=== PATIENT | male | born 1940 | race Caucasian/White ===

== ENCOUNTER 2021-04-07 19:37 | Inpatient (IN) | payer MEDICARE, MEDICAID ==
[~2021-04-07] VITALS: Ht 167.6 cm; Wt 60.3 kg
[~2021-04-07 19:37] MED LIST: ALBU8HFA IH; ATOR40TA28 PO; CLOP75TA60 PO; GABA-1216 PO; GLIP5 PO; LEVO50TA28 PO; LISI-892 PO; MECL-186 PO; METF-960 PO; TAMS-13 PO
[2021-04-07 20:55] LABS: BASOPHILS % (AUTO) 0.1 % (0.0-2.0); EOSINOPHILS % (AUTO) 0.1 % (1.0-6.0); HEMATOCRIT 38.9 % (41-53); HEMOGLOBIN 13.2 g/dL (13.5-17.5); LYMPHOCYTES # (AUTO) 0.7 K/uL (1.0-4.8); LYMPHOCYTES % (AUTO) 16.2 % (22.0-44.0); MEAN CORPUSCULAR HEMOGLOBIN 30.8 pg (26.0-34.0); MEAN CORPUSCULAR HGB CONC 34.1 G/dL (31.0-37.0); MEAN CORPUSCULAR VOLUME 91 fL (80-100); MONOCYTES # (AUTO) 0.6 K/uL (0.1-1.0); MONOCYTES % (AUTO) 12.8 % (2.0-9.0); NEUTROPHILS # (AUTO) 3.2 K/uL (1.8-7.7); NEUTROPHILS % (AUTO) 70.8 % (40.0-70.0); PLATELET COUNT (AUTO) 237 K/uL (150-450); RED BLOOD CELL COUNT(AUTO) 4.29 MIL/uL (4.50-5.90); RED CELL DISTRIBUTION WIDTH 13.3 % (11.5-14.5)
[2021-04-07 21:05] LABS: ANION GAP 9 mmol/L (8-16); CALCIUM, TOTAL 8.9 mg/dL (8.8-10.5); CARBON DIOXIDE 28 mmol/L (22-29); CHLORIDE 99 mmol/L (98-107); CREATININE 0.85 mg/dL (0.60-1.30); GLUCOSE,RANDOM 147 mg/dL (70-110); POTASSIUM 3.2 mmol/L (3.5-5.1); SODIUM SERUM 136 mmol/L (136-145); UREA NITROGEN, BLOOD 13 mg/dL (7-18)
[2021-04-07 21:06] LABS: GLOMERULAR FILTR. RATE CALC > 60 mL/min (>60)
[2021-04-07 21:12] LABS: LACTIC ACID 0.8 mmol/L (0.4-2.0)
[2021-04-07] MEDS: ACETAMINOPHEN 325 MG TABLET PO ONE ×2 (21:15→22:20)
[2021-04-07] MEDS: SODIUM CHLORIDE 0.9% 1,000 ML IV ONE ×2 (21:15→22:19)
[2021-04-07 21:19] LABS: ALANINE AMINOTRANSFERASE 27 U/L (12-78); ALBUMIN 3.3 g/dL (3.4-5.0); ALKALINE PHOSPHATASE 137 U/L (46-116); ASPARTATE AMINOTRANSFERASE 24 U/L (15-37); BILIRUBIN,TOTAL 1.5 mg/dL (0.1-1.0); TOTAL PROTEIN, SERUM 7.9 g/dL (6.4-8.2)
[2021-04-07 21:25] LABS: B-TYPE NATRIURETIC PEPTIDE 80 pg/mL (0-100)
[2021-04-07 21:25] LABS: COVID AG,FIA SOURCE NASOPHARYNGEAL
[2021-04-07] MEDS ORDERED: SODIUM CHLORIDE 0.9% 2,250 ML IV ONE (21:45)
[2021-04-07] MEDS ORDERED: 0.9% SODIUM CHLORIDE 10 ML SYRINGE IVP PRN (21:45)
[2021-04-07] MEDS ORDERED: AZITHROMYCIN 500 MG/NS 250 ML IV ONE (21:45)
[2021-04-07] MEDS ORDERED: ACETAMINOPHEN 325 MG TABLET PO PRN (21:45)
[2021-04-07] MEDS ORDERED: ONDANSETRON HCL 4 MG/2 ML VIAL IVP PRN (21:45)
[2021-04-07] MEDS: CefTRIAXone 1 GM/DEXTROSE 50 ML IV ONE ×2 (21:45→22:22)
[2021-04-07 21:56] LABS: INFLUENZA TYPE A NEGATIVE FOR TYPE A (NEGATIVE); INFLUENZA TYPE B NEGATIVE FOR TYPE B (NEGATIVE)
[2021-04-07 21:58] LABS: FREE T4 (FREE THYROXINE) 0.98 ng/dL (0.76-1.46)
[2021-04-08] MEDS ORDERED: SODIUM CHLORIDE 0.9% 1,000 ML IV ONE (08:15)
[2021-04-08] MEDS ORDERED: AZITHROMYCIN 500 MG/NS 250 ML IV ONE (08:15)
[2021-04-08] MEDS ORDERED: CefTRIAXone 1 GM/DEXTROSE 50 ML IV ONE (08:15)
[2021-04-08 21:41] LABS: GLUCOMETER DEV NAME(LOC) ERT.5; GLUCOSE,POINT OF CARE 171 MG/DL (70-110)
[2021-04-09] MEDS ORDERED: HEPARIN SODIUM 25000 UNITS/D5W 250 ML IV PRN (02:15)
[2021-04-09] MEDS ORDERED: ACETAMINOPHEN 325 MG TABLET PO PRN (02:15)
[2021-04-09] MEDS ORDERED: ONDANSETRON HCL 4 MG/2 ML VIAL IVP PRN ×2 (02:15→11:30)
[2021-04-09] MEDS ORDERED: HEPARIN SODIUM,PORCINE 5,000 UNITS/ML VIAL IVP PRN ×2 (02:15)
[2021-04-09 02:29] LABS: INR 1.1 (0.9-1.1); PROTHROMBIN TIME 11.9 SEC (9.4-11.6)
[2021-04-09] MEDS ORDERED: INSULIN LISPRO 100 UNITS/ML SQ PRN (02:30)
[2021-04-09] MEDS ORDERED: DEXTROSE 50%-WATER 25 GM/50 ML SYRINGE IVP PRN ×2 (02:30→12:15)
[2021-04-09 08:22] VITALS: BP 137/76
[2021-04-09] MEDS ORDERED: BISACODYL 10 MG RECTAL RECTAL SUPPOSITORY PR PRN (11:30)
[2021-04-09] MEDS ORDERED: HYDROCODONE/ACETAMINOPHEN 5-325 MG TABLET PO PRN (11:30)
[2021-04-09] MEDS ORDERED: ZOLPIDEM TARTRATE 5 MG TABLET PO PRN (11:30)
[2021-04-09] MEDS ORDERED: MORPHINE SULFATE 2 MG/ML SYRINGE IVP PRN (11:30)
[2021-04-09] MEDS ORDERED: MAGNESIUM HYDROXIDE SUSPENSION 30 ML UDCUP PO PRN (11:30)
[2021-04-09] MEDS ORDERED: REMDESIVIR 200 MG in SODIUM CHLORIDE 0.9% 250 ML IV ONE (12:00)
[2021-04-09] MEDS: INSULIN LISPRO 100 UNITS/ML SQ PRN ×2 (12:14→21:25)
[2021-04-09 13:24] LABS: GLUCOMETER DEV NAME(LOC) 6S.1; GLUCOSE,POINT OF CARE 223 MG/DL (70-110)
[2021-04-09 13:30] VITALS: BP 142/82
[2021-04-09] MEDS ORDERED: PNEUMOCOCCAL VACCINE POLYVALENT 0.5 ML VIAL [PPSV23] IM. ONE (14:00)
[2021-04-09] MEDS: ACETAMINOPHEN 325 MG TABLET PO PRN ×2 (14:32→21:11)
[2021-04-09 16:18] VITALS: BP 126/76
[2021-04-09] MEDS: HEPARIN SODIUM,PORCINE 5,000 UNITS/ML VIAL SQ SCH (16:28)
[2021-04-09 16:35] VITALS: BP 121/56
[2021-04-09 20:45] VITALS: BP 143/86
[2021-04-09] MEDS: DOCUSATE SODIUM 100 MG CAPSULE PO SCH (21:11)
[2021-04-09 23:50] VITALS: BP 138/93
[2021-04-10] VITALS (8 sets, daily range): BP systolic 94–146; BP diastolic 51–69
[2021-04-10] MEDS: HEPARIN SODIUM,PORCINE 5,000 UNITS/ML VIAL SQ SCH ×4 (00:08→23:38)
[2021-04-10] MEDS ORDERED: POTASSIUM CHL 10 MEQ/WATER 50 ML IV PRN (00:45)
[2021-04-10] MEDS ORDERED: SODIUM CHLORIDE 0.9% 250 ML IV ONE (02:45)
[2021-04-10] MEDS ORDERED: SODIUM CHLORIDE 0.9% 500 ML IV ONE (02:48)
[2021-04-10] MEDS: POTASSIUM CHLORIDE 20 MEQ ER TABLET PO PRN ×2 (03:47→11:47)
[2021-04-10 05:17] LABS: APPEARANCE,URINE CLEAR (CLEAR); GLUCOSE, URINE (UA) 250 mg/dL (NEGATIVE); KETONES,URINE 15 mg/dL (NEGATIVE); LEUKOCYTE ESTERASE ,URINE NEGATIVE (NEGATIVE); NITRATE,URINE NEGATIVE (NEGATIVE); OCCULT BLOOD,URINE LARGE (NEGATIVE); PROTEIN,URINE SEE CONFIRM (NEGATIVE)
[2021-04-10 05:26] LABS: BILIRUBIN,URINE PRELIM. POSITIVE (NEGATIVE)
[2021-04-10 05:33] LABS: BACTERIA,URINE Rare /HPF (None Seen); SQUAMOUS EPITHELIAL CELL,UR Rare /LPF (None Seen); SULFOSALICYLIC ACID,URINE 4+ (Negative); WBC,URINE 0-2 /HPF (0-5)
[2021-04-10 05:43] LABS: GLUCOMETER DEV NAME(LOC) 6N.1; GLUCOSE,POINT OF CARE 137 MG/DL (70-110)
[2021-04-10 05:53] LABS: GLUCOMETER DEV NAME(LOC) 6S.1; GLUCOSE,POINT OF CARE 270 MG/DL (70-110)
[2021-04-10] MEDS: INSULIN LISPRO 100 UNITS/ML SQ PRN ×4 (06:03→21:26)
[2021-04-10 06:08] LABS: BASOPHILS % (AUTO) 0.2 % (0.0-2.0); EOSINOPHILS % (AUTO) 0 % (1.0-6.0); HEMATOCRIT 38.6 % (41-53); HEMOGLOBIN 13.4 g/dL (13.5-17.5); LYMPHOCYTES # (AUTO) 0.7 K/uL (1.0-4.8); LYMPHOCYTES % (AUTO) 24.5 % (22.0-44.0); MEAN CORPUSCULAR HEMOGLOBIN 30.8 pg (26.0-34.0); MEAN CORPUSCULAR HGB CONC 34.7 G/dL (31.0-37.0); MEAN CORPUSCULAR VOLUME 89 fL (80-100); MONOCYTES # (AUTO) 0.3 K/uL (0.1-1.0); MONOCYTES % (AUTO) 11.1 % (2.0-9.0); NEUTROPHILS # (AUTO) 1.7 K/uL (1.8-7.7); NEUTROPHILS % (AUTO) 64.2 % (40.0-70.0); PLATELET COUNT (AUTO) 200 K/uL (150-450); RED BLOOD CELL COUNT(AUTO) 4.35 MIL/uL (4.50-5.90); RED CELL DISTRIBUTION WIDTH 12.9 % (11.5-14.5)
[2021-04-10 06:44] LABS: GLUCOMETER DEV NAME(LOC) 5S.2B; GLUCOSE,POINT OF CARE 265 MG/DL (70-110)
[2021-04-10] MEDS: DEXAMETHASONE SOD PHOS 4 MG/ML VIAL IVP SCH (09:00)
[2021-04-10] MEDS: DOCUSATE SODIUM 100 MG CAPSULE PO SCH ×2 (09:00→21:26)
[2021-04-10] MEDS: PANTOPRAZOLE SODIUM 40 MG/VIAL IVP SCH (09:00)
[2021-04-10 09:03] LABS: ANION GAP 9 mmol/L (8-16); CALCIUM, TOTAL 8.5 mg/dL (8.8-10.5); CARBON DIOXIDE 27 mmol/L (22-29); CHLORIDE 97 mmol/L (98-107); CREATININE 0.91 mg/dL (0.60-1.30); GLUCOSE,RANDOM 215 mg/dL (70-110); POTASSIUM 3.3 mmol/L (3.5-5.1); SODIUM SERUM 133 mmol/L (136-145); UREA NITROGEN, BLOOD 19 mg/dL (7-18)
[2021-04-10 09:05] LABS: GLOMERULAR FILTR. RATE CALC > 60 mL/min (>60)
[2021-04-10] MEDS: REMDESIVIR 100 MG in SODIUM CHLORIDE 0.9% 250 ML IV SCH (13:28)
[2021-04-10 13:44] LABS: GLUCOMETER DEV NAME(LOC) 5S.2B; GLUCOSE,POINT OF CARE 219 MG/DL (70-110)
[2021-04-11 01:01] LABS: GLUCOMETER DEV NAME(LOC) 5N.3; GLUCOSE,POINT OF CARE 247 MG/DL (70-110)
[2021-04-11 01:01] LABS: GLUCOMETER DEV NAME(LOC) 5S.2B; GLUCOSE,POINT OF CARE 352 MG/DL (70-110)
[2021-04-11 04:32] VITALS: BP 126/66
[2021-04-11] MEDS: INSULIN LISPRO 100 UNITS/ML SQ PRN ×4 (06:01→21:15)
[2021-04-11] MEDS: HEPARIN SODIUM,PORCINE 5,000 UNITS/ML VIAL SQ SCH ×3 (08:00→23:46)
[2021-04-11 08:25] VITALS: BP 122/75
[2021-04-11 09:04] LABS: BASOPHILS % (AUTO) 0.2 % (0.0-2.0); EOSINOPHILS % (AUTO) 0 % (1.0-6.0); HEMATOCRIT 36.5 % (41-53); HEMOGLOBIN 12.6 g/dL (13.5-17.5); LYMPHOCYTES # (AUTO) 0.7 K/uL (1.0-4.8); LYMPHOCYTES % (AUTO) 29.8 % (22.0-44.0); MEAN CORPUSCULAR HEMOGLOBIN 30.8 pg (26.0-34.0); MEAN CORPUSCULAR HGB CONC 34.7 G/dL (31.0-37.0); MEAN CORPUSCULAR VOLUME 89 fL (80-100); MONOCYTES # (AUTO) 0.5 K/uL (0.1-1.0); MONOCYTES % (AUTO) 20.7 % (2.0-9.0); NEUTROPHILS # (AUTO) 1.2 K/uL (1.8-7.7); NEUTROPHILS % (AUTO) 49.3 % (40.0-70.0); PLATELET COUNT (AUTO) 220 K/uL (150-450)
[2021-04-11 09:38] LABS: ALANINE AMINOTRANSFERASE 33 U/L (12-78); ALBUMIN 2.1 g/dL (3.4-5.0); ALKALINE PHOSPHATASE 110 U/L (46-116); ANION GAP 5 mmol/L (8-16); ASPARTATE AMINOTRANSFERASE 37 U/L (15-37); BILIRUBIN,TOTAL 0.5 mg/dL (0.1-1.0); CALCIUM, TOTAL 7.8 mg/dL (8.8-10.5); CARBON DIOXIDE 26 mmol/L (22-29); CHLORIDE 96 mmol/L (98-107); GLUCOSE,RANDOM 264 mg/dL (70-110); POTASSIUM 3.6 mmol/L (3.5-5.1); SODIUM SERUM 127 mmol/L (136-145); TOTAL PROTEIN, SERUM 6.3 g/dL (6.4-8.2); UREA NITROGEN, BLOOD 19 mg/dL (7-18)
[2021-04-11 09:39] LABS: GLOMERULAR FILTR. RATE CALC > 60 mL/min (>60)
[2021-04-11] MEDS: PANTOPRAZOLE SODIUM 40 MG/VIAL IVP SCH (10:03)
[2021-04-11] MEDS: DEXAMETHASONE SOD PHOS 4 MG/ML VIAL IVP SCH (10:03)
[2021-04-11] MEDS: DOCUSATE SODIUM 100 MG CAPSULE PO SCH ×2 (10:03→21:00)
[2021-04-11 11:30] VITALS: BP 147/76
[2021-04-11] MEDS: REMDESIVIR 100 MG in SODIUM CHLORIDE 0.9% 250 ML IV SCH (11:38)
[2021-04-11 14:46] LABS: GLUCOMETER DEV NAME(LOC) 5N.1C; GLUCOSE,POINT OF CARE 248 MG/DL (70-110)
[2021-04-11 14:46] LABS: GLUCOMETER DEV NAME(LOC) 5N.1C; GLUCOSE,POINT OF CARE 278 MG/DL (70-110)
[2021-04-11 16:03] VITALS: BP 123/71
[2021-04-11 18:13] LABS: GLUCOMETER DEV NAME(LOC) 5N.3; GLUCOSE,POINT OF CARE 387 MG/DL (70-110)
[2021-04-11 20:05] VITALS: BP 111/66
[2021-04-11 23:15] VITALS: BP 105/76
[2021-04-12] MEDS: LORazepam 2 MG/ML VIAL IVP PRN ×3 (01:06→20:13)
[2021-04-12 04:20] LABS: ABG A-A DIFF O2 581.4 mmHg (10-20.0); ABG BASE EXCESS 2.5 mmol/L (-2.0-3.0); ABG CARBOXYHEMOGLOBIN 0.4 % (0.0-1.5); ABG HCO3 27.2 mmol/L (22.0-26.0); ABG METHEMOGLOBIN 0.1 % (0.0-1.5); ABG OXYGEN CONTENT 19.3 mL/dL (15.0-23.0); ABG OXYHEMOGLOBIN 97.5 % (94.0-100.0); ABG PCO2 32 mmHg (35-45); ABG PH 7.513 (7.35-7.450); PO2, ARTERIAL BG 99.2 mmHg (75.0-83.0); SITE, BLOOD GAS RT RADIAL; SOURCE, BLOOD GAS ARTERIAL; TEMPERATURE, FAHRENHEIT, BG 98.6 FAHREN (96.0-98.6)
[2021-04-12 04:21] LABS: O2 DEVICE,BLOOD GAS NON REBREATHER (ROOM AIR)
[2021-04-12 05:07] VITALS: BP 154/83
[2021-04-12] MEDS: INSULIN LISPRO 100 UNITS/ML SQ PRN ×4 (06:21→21:05)
[2021-04-12 08:01] VITALS: BP 139/72
[2021-04-12 08:33] LABS: ALANINE AMINOTRANSFERASE 36 U/L (12-78); ALBUMIN 2.5 g/dL (3.4-5.0); ALKALINE PHOSPHATASE 107 U/L (46-116); ANION GAP 7 mmol/L (8-16); ASPARTATE AMINOTRANSFERASE 42 U/L (15-37); BILIRUBIN,TOTAL 0.5 mg/dL (0.1-1.0); CARBON DIOXIDE 27 mmol/L (22-29); CHLORIDE 96 mmol/L (98-107); CREATININE 0.82 mg/dL (0.60-1.30); GLUCOSE,RANDOM 176 mg/dL (70-110); POTASSIUM 3.6 mmol/L (3.5-5.1); SODIUM SERUM 130 mmol/L (136-145); TOTAL PROTEIN, SERUM 6.7 g/dL (6.4-8.2); UREA NITROGEN, BLOOD 17 mg/dL (7-18)
[2021-04-12] MEDS: HEPARIN SODIUM,PORCINE 5,000 UNITS/ML VIAL SQ SCH ×2 (08:34→16:00)
[2021-04-12] MEDS: PANTOPRAZOLE SODIUM 40 MG/VIAL IVP SCH (08:35)
[2021-04-12] MEDS: DEXAMETHASONE SOD PHOS 4 MG/ML VIAL IVP SCH (08:35)
[2021-04-12] MEDS: DOCUSATE SODIUM 100 MG CAPSULE PO SCH ×2 (08:35→20:06)
[2021-04-12 08:56] LABS: GLOMERULAR FILTR. RATE CALC > 60 mL/min (>60)
[2021-04-12] MEDS: REMDESIVIR 100 MG in SODIUM CHLORIDE 0.9% 250 ML IV SCH (11:27)
[2021-04-12 12:22] VITALS: BP 140/70
[2021-04-12 15:47] LABS: GLUCOMETER DEV NAME(LOC) 5N.3; GLUCOSE,POINT OF CARE 343 MG/DL (70-110)
[2021-04-12 16:41] VITALS: BP 119/76
[2021-04-12 19:40] VITALS: BP 131/88
[2021-04-12] MEDS ORDERED: HALOPERIDOL LACTATE 5 MG/ML VIAL IM PRN (23:00)
[2021-04-13] VITALS (7 sets, daily range): BP systolic 104–146; BP diastolic 61–79
[2021-04-13] MEDS: INSULIN LISPRO 100 UNITS/ML SQ PRN ×4 (06:25→20:33)
[2021-04-13 07:18] LABS: BASOPHILS % (AUTO) 0.1 % (0.0-2.0); EOSINOPHILS % (AUTO) 0.3 % (1.0-6.0); HEMATOCRIT 38.7 % (41-53); HEMOGLOBIN 13.2 g/dL (13.5-17.5); LYMPHOCYTES % (AUTO) 24.5 % (22.0-44.0); MEAN CORPUSCULAR HEMOGLOBIN 30.6 pg (26.0-34.0); MEAN CORPUSCULAR HGB CONC 34.2 G/dL (31.0-37.0); MEAN CORPUSCULAR VOLUME 90 fL (80-100); MONOCYTES # (AUTO) 0.7 K/uL (0.1-1.0); MONOCYTES % (AUTO) 16.9 % (2.0-9.0); NEUTROPHILS # (AUTO) 2.3 K/uL (1.8-7.7); NEUTROPHILS % (AUTO) 58.2 % (40.0-70.0); PLATELET COUNT (AUTO) 252 K/uL (150-450); RED BLOOD CELL COUNT(AUTO) 4.32 MIL/uL (4.50-5.90); RED CELL DISTRIBUTION WIDTH 13.2 % (11.5-14.5)
[2021-04-13 07:36] LABS: ALANINE AMINOTRANSFERASE 32 U/L (12-78); ALBUMIN 2.2 g/dL (3.4-5.0); ALKALINE PHOSPHATASE 94 U/L (46-116); ANION GAP 8 mmol/L (8-16); ASPARTATE AMINOTRANSFERASE 44 U/L (15-37); BILIRUBIN,TOTAL 0.6 mg/dL (0.1-1.0); CALCIUM, TOTAL 7.9 mg/dL (8.8-10.5); CARBON DIOXIDE 28 mmol/L (22-29); CHLORIDE 101 mmol/L (98-107); CREATININE 0.81 mg/dL (0.60-1.30); GLUCOSE,RANDOM 146 mg/dL (70-110); POTASSIUM 3.4 mmol/L (3.5-5.1); SODIUM SERUM 137 mmol/L (136-145); TOTAL PROTEIN, SERUM 6.4 g/dL (6.4-8.2); UREA NITROGEN, BLOOD 22 mg/dL (7-18)
[2021-04-13 07:37] LABS: GLOMERULAR FILTR. RATE CALC > 60 mL/min (>60)
[2021-04-13 07:58] LABS: GLUCOMETER DEV NAME(LOC) 5N.1C; GLUCOSE,POINT OF CARE 178 MG/DL (70-110)
[2021-04-13 07:58] LABS: GLUCOMETER DEV NAME(LOC) 5N.3; GLUCOSE,POINT OF CARE 255 MG/DL (70-110)
[2021-04-13 07:58] LABS: GLUCOMETER DEV NAME(LOC) 5N.3; GLUCOSE,POINT OF CARE 250 MG/DL (70-110)
[2021-04-13 07:58] LABS: GLUCOMETER DEV NAME(LOC) 5N.1C; GLUCOSE,POINT OF CARE 236 MG/DL (70-110)
[2021-04-13 07:58] LABS: GLUCOMETER DEV NAME(LOC) 5N.3; GLUCOSE,POINT OF CARE 165 MG/DL (70-110)
[2021-04-13] MEDS: HEPARIN SODIUM,PORCINE 5,000 UNITS/ML VIAL SQ SCH ×2 (08:32)
[2021-04-13] MEDS: DEXAMETHASONE SOD PHOS 4 MG/ML VIAL IVP SCH (08:33)
[2021-04-13] MEDS: PANTOPRAZOLE SODIUM 40 MG/VIAL IVP SCH (08:33)
[2021-04-13] MEDS: POTASSIUM CHLORIDE 20 MEQ ER TABLET PO PRN (08:33)
[2021-04-13] MEDS: DOCUSATE SODIUM 100 MG CAPSULE PO SCH ×2 (08:33→20:26)
[2021-04-13] MEDS: LORazepam 2 MG/ML VIAL IVP PRN ×2 (12:04→21:15)
[2021-04-13] MEDS ORDERED: SODIUM CHLORIDE 0.9% IV ONE (12:15)
[2021-04-13] MEDS ORDERED: TOCILIZUMAB IV ONE (12:15)
[2021-04-13] MEDS: REMDESIVIR 100 MG in SODIUM CHLORIDE 0.9% 250 ML IV SCH (12:40)
[2021-04-13] MEDS: ENOXAPARIN SODIUM 30 MG/0.3 ML PF SYRINGE SQ SCH ×2 (14:31→20:26)
[2021-04-13 17:41] LABS: GLUCOMETER DEV NAME(LOC) 5N.1C; GLUCOSE,POINT OF CARE 398 MG/DL (70-110)
[2021-04-14 04:44] VITALS: BP 145/93
[2021-04-14 05:39] LABS: GLUCOMETER DEV NAME(LOC) 5N.3; GLUCOSE,POINT OF CARE 313 MG/DL (70-110)
[2021-04-14] MEDS: INSULIN LISPRO 100 UNITS/ML SQ PRN ×4 (05:41→20:39)
[2021-04-14 07:43] VITALS: BP 141/83
[2021-04-14 07:58] LABS: ALANINE AMINOTRANSFERASE 35 U/L (12-78); ALBUMIN 2.4 g/dL (3.4-5.0); ALKALINE PHOSPHATASE 102 U/L (46-116); ANION GAP 10 mmol/L (8-16); ASPARTATE AMINOTRANSFERASE 39 U/L (15-37); BILIRUBIN,TOTAL 0.7 mg/dL (0.1-1.0); C-REACTIVE PROTEIN QUANT 10.74 mg/dL (0.00-0.30); CALCIUM, TOTAL 8.1 mg/dL (8.8-10.5); CARBON DIOXIDE 25 mmol/L (22-29); CHLORIDE 101 mmol/L (98-107); CREATININE 0.81 mg/dL (0.60-1.30); GLUCOSE,RANDOM 211 mg/dL (70-110); POTASSIUM 3.7 mmol/L (3.5-5.1); SODIUM SERUM 136 mmol/L (136-145); TOTAL PROTEIN, SERUM 6.8 g/dL (6.4-8.2); UREA NITROGEN, BLOOD 21 mg/dL (7-18)
[2021-04-14 07:59] LABS: GLOMERULAR FILTR. RATE CALC > 60 mL/min (>60)
[2021-04-14 08:14] LABS: D-DIMER 1.31 mg/L FEU (0.00-0.50)
[2021-04-14] MEDS: DOCUSATE SODIUM 100 MG CAPSULE PO SCH ×2 (09:00→21:00)
[2021-04-14] MEDS: DEXAMETHASONE SOD PHOS 4 MG/ML VIAL IVP SCH (09:52)
[2021-04-14] MEDS: PANTOPRAZOLE SODIUM 40 MG/VIAL IVP SCH (09:52)
[2021-04-14] MEDS: ENOXAPARIN SODIUM 30 MG/0.3 ML PF SYRINGE SQ SCH ×2 (09:53→20:17)
[2021-04-14 10:25] LABS: ABG A-A DIFF O2 380.1 mmHg (10-20.0); ABG BASE EXCESS 1.6 mmol/L (-2.0-3.0); ABG CARBOXYHEMOGLOBIN 0.3 % (0.0-1.5); ABG HCO3 26.4 mmol/L (22.0-26.0); ABG METHEMOGLOBIN 0.1 % (0.0-1.5); ABG OXYGEN CONTENT 19.3 mL/dL (15.0-23.0); ABG OXYGEN SATURATION 96.7 % (95.0-98.0); ABG OXYHEMOGLOBIN 96.3 % (94.0-100.0); ABG PCO2 33 mmHg (35-45); ABG PH 7.497 (7.35-7.450); ABG TOTAL HEMOGLOBIN 14.2 G/dL (12.0-18.0); O2 DEVICE,BLOOD GAS BIPAP (ROOM AIR); PO2, ARTERIAL BG 84.4 mmHg (75.0-83.0); SITE, BLOOD GAS RT BRACHIAL; SOURCE, BLOOD GAS ARTERIAL; TEMPERATURE, FAHRENHEIT, BG 97.8 FAHREN (96.0-98.6)
[2021-04-14 10:26] LABS: SPONTANEOUS VT, BG 525 ml
[2021-04-14 11:38] VITALS: BP 121/79
[2021-04-14 12:41] LABS: GLUCOMETER DEV NAME(LOC) 5N.1C; GLUCOSE,POINT OF CARE 364 MG/DL (70-110)
[2021-04-14 12:41] LABS: GLUCOMETER DEV NAME(LOC) 5N.1C; GLUCOSE,POINT OF CARE 193 MG/DL (70-110)
[2021-04-14 12:41] LABS: GLUCOMETER DEV NAME(LOC) 5N.1C; GLUCOSE,POINT OF CARE 206 MG/DL (70-110)
[2021-04-14 15:36] LABS: GLUCOMETER DEV NAME(LOC) 5N.3; GLUCOSE,POINT OF CARE 187 MG/DL (70-110)
[2021-04-14 15:50] VITALS: BP 123/74
[2021-04-14] MEDS: LORazepam 2 MG/ML VIAL IVP PRN ×2 (15:59→20:18)
[2021-04-14 20:30] VITALS: BP 132/71
[2021-04-15 00:17] VITALS: BP 129/64
[2021-04-15] MEDS: LORazepam 2 MG/ML VIAL IVP PRN (01:49)
[2021-04-15 05:10] VITALS: BP 135/78
[2021-04-15 07:22] VITALS: BP 146/87
[2021-04-15 07:32] LABS: D-DIMER 0.74 mg/L FEU (0.00-0.50)
[2021-04-15 07:37] LABS: ALANINE AMINOTRANSFERASE 32 U/L (12-78); ALBUMIN 2.2 g/dL (3.4-5.0); ALKALINE PHOSPHATASE 93 U/L (46-116); ANION GAP 5 mmol/L (8-16); ASPARTATE AMINOTRANSFERASE 35 U/L (15-37); BILIRUBIN,TOTAL 0.6 mg/dL (0.1-1.0); C-REACTIVE PROTEIN QUANT 7.16 mg/dL (0.00-0.30); CALCIUM, TOTAL 8.1 mg/dL (8.8-10.5); CARBON DIOXIDE 28 mmol/L (22-29); CHLORIDE 104 mmol/L (98-107); CREATININE 0.69 mg/dL (0.60-1.30); GLOMERULAR FILTR. RATE CALC > 60 mL/min (>60); GLUCOSE,RANDOM 150 mg/dL (70-110); POTASSIUM 3.8 mmol/L (3.5-5.1); SODIUM SERUM 137 mmol/L (136-145); TOTAL PROTEIN, SERUM 6.4 g/dL (6.4-8.2); UREA NITROGEN, BLOOD 17 mg/dL (7-18)
[2021-04-15] MEDS: ENOXAPARIN SODIUM 30 MG/0.3 ML PF SYRINGE SQ SCH ×2 (07:57→21:06)
[2021-04-15] MEDS: DOCUSATE SODIUM 100 MG CAPSULE PO SCH ×2 (07:57→21:00)
[2021-04-15] MEDS: DEXAMETHASONE SOD PHOS 4 MG/ML VIAL IVP SCH (07:58)
[2021-04-15] MEDS: PANTOPRAZOLE SODIUM 40 MG/VIAL IVP SCH (07:58)
[2021-04-15] MEDS: INSULIN LISPRO 100 UNITS/ML SQ PRN ×3 (11:06→21:05)
[2021-04-15 11:11] VITALS: BP 147/76
[2021-04-15 15:36] VITALS: BP 129/62
[2021-04-15 20:06] VITALS: BP 133/73
[2021-04-15 20:08] LABS: GLUCOMETER DEV NAME(LOC) 5N.1C; GLUCOSE,POINT OF CARE 117 MG/DL (70-110)
[2021-04-15 20:08] LABS: GLUCOMETER DEV NAME(LOC) 5N.1C; GLUCOSE,POINT OF CARE 397 MG/DL (70-110)
[2021-04-15 20:08] LABS: GLUCOMETER DEV NAME(LOC) 5N.1C; GLUCOSE,POINT OF CARE 314 MG/DL (70-110)
[2021-04-15 20:09] LABS: GLUCOMETER DEV NAME(LOC) 5N.1C; GLUCOSE,POINT OF CARE 327 MG/DL (70-110)
[2021-04-15 20:09] LABS: GLUCOMETER DEV NAME(LOC) 5N.1C; GLUCOSE,POINT OF CARE 241 MG/DL (70-110)
[2021-04-15 21:32] LABS: ABG BASE EXCESS 2.8 mmol/L (-2.0-3.0); ABG CARBOXYHEMOGLOBIN 0.3 % (0.0-1.5); ABG HCO3 27.3 mmol/L (22.0-26.0); ABG METHEMOGLOBIN 0.3 % (0.0-1.5); ABG OXYGEN CONTENT 16.5 mL/dL (15.0-23.0); ABG OXYGEN SATURATION 89.7 % (95.0-98.0); ABG OXYHEMOGLOBIN 89.2 % (94.0-100.0); ABG PCO2 31 mmHg (35-45); ABG PH 7.529 (7.35-7.450); ABG TOTAL HEMOGLOBIN 13.2 G/dL (12.0-18.0); SOURCE, BLOOD GAS ARTERIAL; TEMPERATURE, FAHRENHEIT, BG 97.7 FAHREN (96.0-98.6)
[2021-04-15 21:33] LABS: SITE, BLOOD GAS RT RADIAL
[2021-04-15 21:34] LABS: O2 DEVICE,BLOOD GAS HI FL CANNULA (ROOM AIR)
[2021-04-16 00:02] VITALS: BP 112/64
[2021-04-16 01:33] LABS: GLUCOMETER DEV NAME(LOC) 5N.3; GLUCOSE,POINT OF CARE 265 MG/DL (70-110)
[2021-04-16 04:08] VITALS: BP 145/77
[2021-04-16 07:04] LABS: BASOPHILS % (AUTO) 0.4 % (0.0-2.0); EOSINOPHILS % (AUTO) 0.3 % (1.0-6.0); HEMATOCRIT 38.8 % (41-53); HEMOGLOBIN 13.1 g/dL (13.5-17.5); LYMPHOCYTES # (AUTO) 1.1 K/uL (1.0-4.8); LYMPHOCYTES % (AUTO) 13.4 % (22.0-44.0); MEAN CORPUSCULAR HEMOGLOBIN 30.6 pg (26.0-34.0); MEAN CORPUSCULAR HGB CONC 33.9 G/dL (31.0-37.0); MEAN CORPUSCULAR VOLUME 90 fL (80-100); MONOCYTES # (AUTO) 0.5 K/uL (0.1-1.0); MONOCYTES % (AUTO) 6.1 % (2.0-9.0); NEUTROPHILS # (AUTO) 6.5 K/uL (1.8-7.7); NEUTROPHILS % (AUTO) 79.8 % (40.0-70.0); PLATELET COUNT (AUTO) 338 K/uL (150-450); RED BLOOD CELL COUNT(AUTO) 4.29 MIL/uL (4.50-5.90); RED CELL DISTRIBUTION WIDTH 13.4 % (11.5-14.5)
[2021-04-16 08:03] VITALS: BP 115/75
[2021-04-16] MEDS: DOCUSATE SODIUM 100 MG CAPSULE PO SCH ×2 (09:05→21:02)
[2021-04-16] MEDS: ENOXAPARIN SODIUM 30 MG/0.3 ML PF SYRINGE SQ SCH ×2 (09:05→21:02)
[2021-04-16] MEDS: PANTOPRAZOLE SODIUM 40 MG/VIAL IVP SCH (09:05)
[2021-04-16] MEDS: DEXAMETHASONE SOD PHOS 4 MG/ML VIAL IVP SCH (09:05)
[2021-04-16] MEDS: INSULIN LISPRO 100 UNITS/ML SQ PRN ×3 (11:38→21:04)
[2021-04-16 12:12] LABS: GLUCOMETER DEV NAME(LOC) 5N.3; GLUCOSE,POINT OF CARE 137 MG/DL (70-110)
[2021-04-16 12:42] VITALS: BP 134/76
[2021-04-16 15:14] LABS: GLUCOMETER DEV NAME(LOC) 5S.1; GLUCOSE,POINT OF CARE 253 MG/DL (70-110)
[2021-04-16 15:58] VITALS: BP 126/67
[2021-04-16 20:09] VITALS: BP 114/66
[2021-04-16 20:27] LABS: GLUCOMETER DEV NAME(LOC) 5N.3; GLUCOSE,POINT OF CARE 409 MG/DL (70-110)
[2021-04-17 00:27] VITALS: BP 123/74
[2021-04-17 03:01] LABS: GLUCOMETER DEV NAME(LOC) 5N.3; GLUCOSE,POINT OF CARE 298 MG/DL (70-110)
[2021-04-17 04:35] VITALS: BP 111/59
[2021-04-17] MEDS: INSULIN LISPRO 100 UNITS/ML SQ PRN ×4 (05:42→20:54)
[2021-04-17] MEDS: DOCUSATE SODIUM 100 MG CAPSULE PO SCH ×2 (08:00→20:33)
[2021-04-17] MEDS: PANTOPRAZOLE SODIUM 40 MG/VIAL IVP SCH (08:00)
[2021-04-17] MEDS: ENOXAPARIN SODIUM 30 MG/0.3 ML PF SYRINGE SQ SCH ×2 (08:00→20:33)
[2021-04-17] MEDS: DEXAMETHASONE SOD PHOS 4 MG/ML VIAL IVP SCH (08:00)
[2021-04-17 08:16] VITALS: BP_SYST 107; BP_SYST 116; BP_DIAS 60; BP_DIAS 77
[2021-04-17 08:18] LABS: GLUCOMETER DEV NAME(LOC) 5N.3; GLUCOSE,POINT OF CARE 167 MG/DL (70-110)
[2021-04-17 11:26] VITALS: BP 118/68
[2021-04-17 15:51] VITALS: BP 110/53
[2021-04-17 19:50] VITALS: BP 131/75
[2021-04-18] VITALS: BP 118/65
[2021-04-18 04:34] VITALS: BP 112/61
[2021-04-18] MEDS: INSULIN LISPRO 100 UNITS/ML SQ PRN ×4 (05:53→21:08)
[2021-04-18 06:05] LABS: GLUCOMETER DEV NAME(LOC) 5N.1C; GLUCOSE,POINT OF CARE 293 MG/DL (70-110)
[2021-04-18 06:18] LABS: EOSINOPHILS % (AUTO) 0 % (1.0-6.0); HEMATOCRIT 38.4 % (41-53); HEMOGLOBIN 12.9 g/dL (13.5-17.5); LYMPHOCYTES # (AUTO) 0.4 K/uL (1.0-4.8); LYMPHOCYTES % (AUTO) 6.6 % (22.0-44.0); MEAN CORPUSCULAR HEMOGLOBIN 30.5 pg (26.0-34.0); MEAN CORPUSCULAR HGB CONC 33.6 G/dL (31.0-37.0); MEAN CORPUSCULAR VOLUME 91 fL (80-100); MONOCYTES # (AUTO) 0.2 K/uL (0.1-1.0); MONOCYTES % (AUTO) 3.8 % (2.0-9.0); NEUTROPHILS # (AUTO) 5.5 K/uL (1.8-7.7); PLATELET COUNT (AUTO) 324 K/uL (150-450); RED BLOOD CELL COUNT(AUTO) 4.24 MIL/uL (4.50-5.90); RED CELL DISTRIBUTION WIDTH 13.4 % (11.5-14.5)
[2021-04-18 06:37] LABS: ANION GAP 8 mmol/L (8-16); C-REACTIVE PROTEIN QUANT 10.79 mg/dL (0.00-0.30); CALCIUM, TOTAL 8.1 mg/dL (8.8-10.5); CARBON DIOXIDE 27 mmol/L (22-29); CHLORIDE 99 mmol/L (98-107); CREATININE 0.84 mg/dL (0.60-1.30); GLUCOSE,RANDOM 196 mg/dL (70-110); POTASSIUM 4.2 mmol/L (3.5-5.1); SODIUM SERUM 134 mmol/L (136-145); UREA NITROGEN, BLOOD 19 mg/dL (7-18)
[2021-04-18 06:39] LABS: GLOMERULAR FILTR. RATE CALC > 60 mL/min (>60)
[2021-04-18 06:51] LABS: NEUTROPHILS % (AUTO) 89.6 % (40.0-70.0)
[2021-04-18 08:20] VITALS: BP 128/61
[2021-04-18] MEDS: DEXAMETHASONE SOD PHOS 4 MG/ML VIAL IVP SCH (08:35)
[2021-04-18] MEDS: PANTOPRAZOLE SODIUM 40 MG/VIAL IVP SCH (08:35)
[2021-04-18] MEDS: ENOXAPARIN SODIUM 30 MG/0.3 ML PF SYRINGE SQ SCH ×2 (08:47→21:07)
[2021-04-18] MEDS: DOCUSATE SODIUM 100 MG CAPSULE PO SCH ×2 (08:47→21:07)
[2021-04-18 11:26] VITALS: BP 149/97
[2021-04-18 15:27] VITALS: BP 141/92
[2021-04-18 18:42] LABS: GLUCOMETER DEV NAME(LOC) 5N.1C; GLUCOSE,POINT OF CARE 340 MG/DL (70-110)
[2021-04-18 18:42] LABS: GLUCOMETER DEV NAME(LOC) 5N.1C; GLUCOSE,POINT OF CARE 284 MG/DL (70-110)
[2021-04-18 20:36] VITALS: BP 142/76
[2021-04-18 21:29] LABS: GLUCOMETER DEV NAME(LOC) 5N.3; GLUCOSE,POINT OF CARE 268 MG/DL (70-110)
[2021-04-18 21:30] LABS: GLUCOMETER DEV NAME(LOC) 5N.3; GLUCOSE,POINT OF CARE 223 MG/DL (70-110)
[2021-04-18 21:30] LABS: GLUCOMETER DEV NAME(LOC) 5N.3; GLUCOSE,POINT OF CARE 212 MG/DL (70-110)
[2021-04-18] MEDS: LORazepam 2 MG/ML VIAL IVP PRN (22:11)
[2021-04-19 05:39] VITALS: BP 138/88
[2021-04-19] MEDS: LORazepam 2 MG/ML VIAL IVP PRN (05:55)
[2021-04-19 06:30] LABS: ANION GAP 4 mmol/L (8-16); C-REACTIVE PROTEIN QUANT 9.13 mg/dL (0.00-0.30); CALCIUM, TOTAL 8.1 mg/dL (8.8-10.5); CARBON DIOXIDE 29 mmol/L (22-29); CHLORIDE 98 mmol/L (98-107); CREATININE 0.82 mg/dL (0.60-1.30); GLUCOSE,RANDOM 143 mg/dL (70-110); SODIUM SERUM 131 mmol/L (136-145); UREA NITROGEN, BLOOD 19 mg/dL (7-18)
[2021-04-19 06:32] LABS: GLOMERULAR FILTR. RATE CALC > 60 mL/min (>60)
[2021-04-19 06:50] LABS: GLUCOMETER DEV NAME(LOC) 5N.1C; GLUCOSE,POINT OF CARE 136 MG/DL (70-110)
[2021-04-19 06:50] LABS: GLUCOMETER DEV NAME(LOC) 5N.1C; GLUCOSE,POINT OF CARE 238 MG/DL (70-110)
[2021-04-19 07:47] LABS: ABG A-A DIFF O2 644.8 mmHg (10-20.0); ABG BASE EXCESS -1.4 mmol/L (-2.0-3.0); ABG CARBOXYHEMOGLOBIN 0.3 % (0.0-1.5); ABG HCO3 22.8 mmol/L (22.0-26.0); ABG METHEMOGLOBIN 0.2 % (0.0-1.5); ABG OXYGEN CONTENT 13.4 mL/dL (15.0-23.0); ABG OXYHEMOGLOBIN 60.6 % (94.0-100.0); ABG PCO2 36 mmHg (35-45); ABG PH 7.426 (7.35-7.450); ABG TOTAL HEMOGLOBIN 15.8 G/dL (12.0-18.0); SOURCE, BLOOD GAS ARTERIAL; TEMPERATURE, FAHRENHEIT, BG 98.6 FAHREN (96.0-98.6)
[2021-04-19 07:50] LABS: ABG OXYGEN SATURATION 60.9 % (95.0-98.0); PO2, ARTERIAL BG 32.5 mmHg (75.0-83.0)
[2021-04-19 07:51] LABS: INSPIRATORY TIME, BG 0.8 SEC; O2 DEVICE,BLOOD GAS BIPAP (ROOM AIR); SITE, BLOOD GAS RT RADIAL
[2021-04-19] MEDS: PANTOPRAZOLE SODIUM 40 MG/VIAL IVP SCH (08:15)
[2021-04-19] MEDS: DEXAMETHASONE SOD PHOS 4 MG/ML VIAL IVP SCH (08:15)
[2021-04-19] MEDS: ENOXAPARIN SODIUM 30 MG/0.3 ML PF SYRINGE SQ SCH ×2 (08:16→22:23)
[2021-04-19] MEDS: DOCUSATE SODIUM 100 MG CAPSULE PO SCH ×2 (08:16→20:42)
[2021-04-19] MEDS ORDERED: FentaNYL CITRATE PF 100 MCG/2 ML VIAL IVP ONE (09:45)
[2021-04-19] MEDS ORDERED: ROCURONIUM BROMIDE 10 MG/ML 5 ML VIAL IVP ONE ×2 (09:45→10:30)
[2021-04-19] MEDS ORDERED: PROPOFOL 1% 20 ML VIAL IVP ONE (09:45)
[2021-04-19] MEDS ORDERED: MIDAZOLAM HCL 2 MG/2 ML VIAL IVP ONE (09:45)
[2021-04-19] MEDS ORDERED: PROPOFOL 1000 MG/ISO-OSM 100 ML ONE (10:00)
[2021-04-19] MEDS ORDERED: RAPID SEQUENCE KIT [RSI] 1 EACH KIT MISC ONE (10:02)
[2021-04-19 11:10] LABS: ABG A-A DIFF O2 603.1 mmHg (10-20.0); ABG BASE EXCESS 2.6 mmol/L (-2.0-3.0); ABG CARBOXYHEMOGLOBIN 0.5 % (0.0-1.5); ABG HCO3 26.1 mmol/L (22.0-26.0); ABG METHEMOGLOBIN 0.3 % (0.0-1.5); ABG OXYGEN CONTENT 17.2 mL/dL (15.0-23.0); ABG OXYGEN SATURATION 90.8 % (95.0-98.0); ABG OXYHEMOGLOBIN 90.1 % (94.0-100.0); ABG PCO2 48 mmHg (35-45); ABG PH 7.383 (7.35-7.450); ABG TOTAL HEMOGLOBIN 13.6 G/dL (12.0-18.0); PO2, ARTERIAL BG 62.3 mmHg (75.0-83.0); SOURCE, BLOOD GAS ARTERIAL; TEMPERATURE, FAHRENHEIT, BG 98.6 FAHREN (96.0-98.6)
[2021-04-19 11:51] LABS: ALANINE AMINOTRANSFERASE 28 U/L (12-78); ALKALINE PHOSPHATASE 99 U/L (46-116); ASPARTATE AMINOTRANSFERASE 38 U/L (15-37); BILIRUBIN,TOTAL 0.9 mg/dL (0.1-1.0); TOTAL PROTEIN, SERUM 7.1 g/dL (6.4-8.2)
[2021-04-19 12:00] VITALS: BP 139/49
[2021-04-19] MEDS ORDERED: TOCILIZUMAB 400 MG in SODIUM CHLORIDE 0.9% 80 ML IV ONE (12:00)
[2021-04-19 12:13] LABS: O2 DEVICE,BLOOD GAS VENTILATOR (ROOM AIR); PEEP,BG 6 cm H2O; SITE, BLOOD GAS ALINE; VT, ABG 420 ml
[2021-04-19 12:15] LABS: ABG A-A DIFF O2 561.8 mmHg (10-20.0); ABG BASE EXCESS 0.3 mmol/L (-2.0-3.0); ABG CARBOXYHEMOGLOBIN 0.9 % (0.0-1.5); ABG HCO3 23.5 mmol/L (22.0-26.0); ABG METHEMOGLOBIN 0.3 % (0.0-1.5); ABG OXYGEN SATURATION 95.1 % (95.0-98.0); ABG PCO2 63 mmHg (35-45); ABG PH 7.256 (7.35-7.450); ABG TOTAL HEMOGLOBIN 14.3 G/dL (12.0-18.0); SOURCE, BLOOD GAS ARTERIAL; TEMPERATURE, FAHRENHEIT, BG 98.6 FAHREN (96.0-98.6)
[2021-04-19 12:22] LABS: SITE, BLOOD GAS ALINE
[2021-04-19 12:28] LABS: O2 DEVICE,BLOOD GAS VENTILATOR (ROOM AIR); VT, ABG 420 ml
[2021-04-19] MEDS ORDERED: SODIUM CHLORIDE 0.9% 500 ML IV ONE (13:36)
[2021-04-19 14:22] LABS: ABG A-A DIFF O2 567.1 mmHg (10-20.0); ABG BASE EXCESS 0.2 mmol/L (-2.0-3.0); ABG CARBOXYHEMOGLOBIN 0.6 % (0.0-1.5); ABG HCO3 23.1 mmol/L (22.0-26.0); ABG METHEMOGLOBIN 0.1 % (0.0-1.5); ABG OXYGEN CONTENT 19.4 mL/dL (15.0-23.0); ABG OXYGEN SATURATION 93.7 % (95.0-98.0); ABG PCO2 66 mmHg (35-45); ABG PH 7.238 (7.35-7.450); ABG TOTAL HEMOGLOBIN 14.8 G/dL (12.0-18.0); PO2, ARTERIAL BG 79.7 mmHg (75.0-83.0); SOURCE, BLOOD GAS ARTERIAL; TEMPERATURE, FAHRENHEIT, BG 98.6 FAHREN (96.0-98.6)
[2021-04-19 14:38] LABS: O2 DEVICE,BLOOD GAS VENTILATOR (ROOM AIR); PEEP,BG 10 cm H2O; SITE, BLOOD GAS ALINE; VT, ABG 390 ml
[2021-04-19] MEDS ORDERED: MIDAZOLAM HCL 100 MG in SODIUM CHLORIDE 0.9% 180 ML IV PRN (14:45)
[2021-04-19] MEDS: PROPOFOL 1000 MG/ISO-OSM 100 ML IV PRN ×2 (15:16→18:57)
[2021-04-19] MEDS: FentaNYL CIT 1000MCG/0.9% NACL 100 ML IV PRN ×2 (15:17→18:57)
[2021-04-19 16:00] VITALS: BP 84/40
[2021-04-19] MEDS ORDERED: NOREPINEPHRINE 4 MG/D5%-WATER 250 ML IV ONE (16:15)
[2021-04-19] MEDS: NOREPINEPHRINE 4 MG/D5%-WATER 250 ML IV PRN (16:28)
[2021-04-19] MEDS ORDERED: PHENYLEPHRINE 200 MG/D5%-WATER 250 ML IV PRN (16:30)
[2021-04-19 20:00] VITALS: BP 100/45
[2021-04-19] MEDS: INSULIN LISPRO 100 UNITS/ML SQ PRN (23:56)
[2021-04-20] VITALS: BP 103/43
[2021-04-20] MEDS ORDERED: SODIUM CHLORIDE 0.9% 250 ML IV ONE (03:24)
[2021-04-20 04:00] VITALS: BP 112/45
[2021-04-20 05:09] LABS: GLUCOSE,POINT OF CARE 337 MG/DL (70-110)
[2021-04-20 05:32] LABS: BASOPHILS % (AUTO) 0.1 % (0.0-2.0); EOSINOPHILS % (AUTO) 0.1 % (1.0-6.0); HEMATOCRIT 37.7 % (41-53); HEMOGLOBIN 12.6 g/dL (13.5-17.5); LYMPHOCYTES # (AUTO) 0.4 K/uL (1.0-4.8); LYMPHOCYTES % (AUTO) 4.8 % (22.0-44.0); MEAN CORPUSCULAR HEMOGLOBIN 30.5 pg (26.0-34.0); MEAN CORPUSCULAR HGB CONC 33.5 G/dL (31.0-37.0); MEAN CORPUSCULAR VOLUME 91 fL (80-100); MONOCYTES # (AUTO) 0.2 K/uL (0.1-1.0); MONOCYTES % (AUTO) 3.3 % (2.0-9.0); NEUTROPHILS # (AUTO) 6.7 K/uL (1.8-7.7); PLATELET COUNT (AUTO) 259 K/uL (150-450); RED BLOOD CELL COUNT(AUTO) 4.13 MIL/uL (4.50-5.90); RED CELL DISTRIBUTION WIDTH 13.5 % (11.5-14.5)
[2021-04-20 05:39] LABS: ALBUMIN 1.8 g/dL (3.4-5.0); BILIRUBIN,TOTAL 0.5 mg/dL (0.1-1.0); C-REACTIVE PROTEIN QUANT 20.76 mg/dL (0.00-0.30); CALCIUM, TOTAL 7.5 mg/dL (8.8-10.5); CREATININE 2.09 mg/dL (0.60-1.30); POTASSIUM 4.7 mmol/L (3.5-5.1); TOTAL PROTEIN, SERUM 6.7 g/dL (6.4-8.2)
[2021-04-20 05:53] LABS: NEUTROPHILS % (AUTO) 91.7 % (40.0-70.0)
[2021-04-20] MEDS: PROPOFOL 1000 MG/ISO-OSM 100 ML IV PRN ×2 (05:53→18:05)
[2021-04-20 07:53] LABS: GLUCOSE,POINT OF CARE 221 MG/DL (70-110)
[2021-04-20] MEDS: DOCUSATE SODIUM 100 MG CAPSULE PO SCH ×2 (08:22→20:54)
[2021-04-20] MEDS: ENOXAPARIN SODIUM 30 MG/0.3 ML PF SYRINGE SQ SCH ×2 (08:22→20:54)
[2021-04-20] MEDS: DEXAMETHASONE SOD PHOS 4 MG/ML VIAL IVP SCH (08:22)
[2021-04-20] MEDS: PANTOPRAZOLE SODIUM 40 MG/VIAL IVP SCH (08:22)
[2021-04-20] MEDS: NOREPINEPHRINE 4 MG/D5%-WATER 250 ML IV PRN (09:51)
[2021-04-20 14:16] LABS: ABG A-A DIFF O2 287.4 mmHg (10-20.0); ABG BASE EXCESS -0.3 mmol/L (-2.0-3.0); ABG CARBOXYHEMOGLOBIN 0.4 % (0.0-1.5); ABG HCO3 24.1 mmol/L (22.0-26.0); ABG METHEMOGLOBIN 0.3 % (0.0-1.5); ABG OXYGEN CONTENT 17.4 mL/dL (15.0-23.0); ABG OXYGEN SATURATION 92.8 % (95.0-98.0); ABG OXYHEMOGLOBIN 92.2 % (94.0-100.0); ABG PCO2 40 mmHg (35-45); ABG PH 7.408 (7.35-7.450); ABG TOTAL HEMOGLOBIN 13.4 G/dL (12.0-18.0); O2 DEVICE,BLOOD GAS VENTILATOR (ROOM AIR); PEEP,BG 8 cm H2O; PO2, ARTERIAL BG 61.7 mmHg (75.0-83.0); SITE, BLOOD GAS ARTERIAL LINE; SOURCE, BLOOD GAS ARTERIAL; TEMPERATURE, FAHRENHEIT, BG 97.5 FAHREN (96.0-98.6); VENT MODE, BG Press. Control Vent (ROOM AIR)
[2021-04-20 17:21] LABS: GLUCOSE,POINT OF CARE 134 MG/DL (70-110)
[2021-04-20] MEDS: INSULIN LISPRO 100 UNITS/ML SQ PRN (18:23)
[2021-04-20 19:01] LABS: GLUCOSE,POINT OF CARE 230 MG/DL (70-110)
[2021-04-20 20:00] VITALS: BP 135/46
[2021-04-20] MEDS: ETHYL ALCOHOL 62% ANTISEPTIC NASAL INHALANT 0.6 ML AMPUL NASAL SCH (20:54)
[2021-04-21] VITALS: BP 143/47
[2021-04-21] MEDS: INSULIN LISPRO 100 UNITS/ML SQ PRN ×3 (00:43→12:20)
[2021-04-21 04:00] VITALS: BP 107/42
[2021-04-21] MEDS: FentaNYL CIT 1000MCG/0.9% NACL 100 ML IV PRN (06:15)
[2021-04-21 06:21] LABS: C-REACTIVE PROTEIN QUANT 10.52 mg/dL (0.00-0.30); CALCIUM, TOTAL 7.8 mg/dL (8.8-10.5); CREATININE 1.85 mg/dL (0.60-1.30); POTASSIUM 4.3 mmol/L (3.5-5.1)
[2021-04-21 08:00] VITALS: BP 117/42
[2021-04-21] MEDS: PANTOPRAZOLE SODIUM 40 MG/VIAL IVP SCH (09:15)
[2021-04-21] MEDS: DEXAMETHASONE SOD PHOS 4 MG/ML VIAL IVP SCH (09:15)
[2021-04-21] MEDS: DOCUSATE SODIUM 100 MG CAPSULE PO SCH ×2 (09:15→21:38)
[2021-04-21] MEDS: ETHYL ALCOHOL 62% ANTISEPTIC NASAL INHALANT 0.6 ML AMPUL NASAL SCH ×2 (09:15→21:38)
[2021-04-21] MEDS: ENOXAPARIN SODIUM 30 MG/0.3 ML PF SYRINGE SQ SCH ×2 (09:16→21:38)
[2021-04-21] MEDS: PROPOFOL 1000 MG/ISO-OSM 100 ML IV PRN ×2 (09:17→16:47)
[2021-04-21 12:00] VITALS: BP 116/43
[2021-04-21 12:21] LABS: GLUCOSE,POINT OF CARE 174 MG/DL (70-110)
[2021-04-21 14:00] LABS: GLUCOSE,POINT OF CARE 235 MG/DL (70-110)
[2021-04-21 16:00] VITALS: BP 129/41
[2021-04-21] MEDS ORDERED: DEXTROSE 50%-WATER 25 GM/50 ML SYRINGE IVP PRN (16:30)
[2021-04-21 16:33] LABS: ABG A-A DIFF O2 483.8 mmHg (10-20.0); ABG BASE EXCESS -0.2 mmol/L (-2.0-3.0); ABG CARBOXYHEMOGLOBIN 0.5 % (0.0-1.5); ABG HCO3 24.4 mmol/L (22.0-26.0); ABG METHEMOGLOBIN 0.3 % (0.0-1.5); ABG OXYGEN CONTENT 18.5 mL/dL (15.0-23.0); ABG OXYHEMOGLOBIN 95.2 % (94.0-100.0); ABG PCO2 40 mmHg (35-45); ABG PH 7.405 (7.35-7.450); ABG TOTAL HEMOGLOBIN 13.8 G/dL (12.0-18.0); PO2, ARTERIAL BG 80.3 mmHg (75.0-83.0); SOURCE, BLOOD GAS ARTERIAL; TEMPERATURE, FAHRENHEIT, BG 98.9 FAHREN (96.0-98.6)
[2021-04-21 16:34] LABS: O2 DEVICE,BLOOD GAS VENTILATOR (ROOM AIR); SITE, BLOOD GAS ARTLINE; VENT MODE, BG PCV/AC (ROOM AIR); VT, ABG 485 ml
[2021-04-21 16:35] LABS: PEEP,BG 10 cm H2O
[2021-04-21] MEDS: INSULIN REGULAR, HUMAN 100 UNITS/ML SQ PRN (17:34)
[2021-04-21 20:00] VITALS: BP 129/48
[2021-04-22] VITALS: BP 146/52
[2021-04-22 00:11] LABS: GLUCOSE,POINT OF CARE 172 MG/DL (70-110)
[2021-04-22 00:11] LABS: GLUCOSE,POINT OF CARE 246 MG/DL (70-110)
[2021-04-22] MEDS: INSULIN REGULAR, HUMAN 100 UNITS/ML SQ PRN ×3 (01:11→18:14)
[2021-04-22] MEDS: PROPOFOL 1000 MG/ISO-OSM 100 ML IV PRN ×3 (01:49→15:06)
[2021-04-22 04:00] VITALS: BP 123/48
[2021-04-22 06:00] LABS: BASOPHILS % (AUTO) 0.1 % (0.0-2.0); EOSINOPHILS % (AUTO) 1.4 % (1.0-6.0); HEMATOCRIT 40.2 % (41-53); HEMOGLOBIN 13.6 g/dL (13.5-17.5); LYMPHOCYTES # (AUTO) 0.3 K/uL (1.0-4.8); LYMPHOCYTES % (AUTO) 3.3 % (22.0-44.0); MEAN CORPUSCULAR HEMOGLOBIN 30.8 pg (26.0-34.0); MEAN CORPUSCULAR HGB CONC 33.8 G/dL (31.0-37.0); MEAN CORPUSCULAR VOLUME 91 fL (80-100); MONOCYTES # (AUTO) 0.2 K/uL (0.1-1.0); MONOCYTES % (AUTO) 2.7 % (2.0-9.0); NEUTROPHILS # (AUTO) 8.4 K/uL (1.8-7.7); PLATELET COUNT (AUTO) 227 K/uL (150-450); RED BLOOD CELL COUNT(AUTO) 4.42 MIL/uL (4.50-5.90); RED CELL DISTRIBUTION WIDTH 13.4 % (11.5-14.5)
[2021-04-22 06:20] LABS: NEUTROPHILS % (AUTO) 92.5 % (40.0-70.0)
[2021-04-22 06:43] LABS: C-REACTIVE PROTEIN QUANT 5.41 mg/dL (0.00-0.30); CALCIUM, TOTAL 8.3 mg/dL (8.8-10.5); CREATININE 1.73 mg/dL (0.60-1.30); POTASSIUM 4.5 mmol/L (3.5-5.1)
[2021-04-22 08:00] VITALS: BP 112/45
[2021-04-22 09:14] LABS: GLUCOSE,POINT OF CARE 275 MG/DL (70-110)
[2021-04-22 09:14] LABS: GLUCOSE,POINT OF CARE 206 MG/DL (70-110)
[2021-04-22] MEDS: DEXAMETHASONE SOD PHOS 4 MG/ML VIAL IVP SCH (09:21)
[2021-04-22] MEDS: PANTOPRAZOLE SODIUM 40 MG/VIAL IVP SCH (09:22)
[2021-04-22] MEDS: ETHYL ALCOHOL 62% ANTISEPTIC NASAL INHALANT 0.6 ML AMPUL NASAL SCH ×2 (09:22→21:21)
[2021-04-22] MEDS: DOCUSATE SODIUM 100 MG CAPSULE PO SCH ×2 (09:22→21:21)
[2021-04-22] MEDS: ENOXAPARIN SODIUM 30 MG/0.3 ML PF SYRINGE SQ SCH ×2 (09:23→21:21)
[2021-04-22 12:00] VITALS: BP 99/38
[2021-04-22] MEDS: FentaNYL CIT 1000MCG/0.9% NACL 100 ML IV PRN (12:38)
[2021-04-22 16:00] VITALS: BP 97/38
[2021-04-22] MEDS: SODIUM CHLORIDE 0.9% 1,000 ML IV SCH (16:16)
[2021-04-22 17:56] LABS: GLUCOSE,POINT OF CARE 283 MG/DL (70-110)
[2021-04-22 20:00] VITALS: BP 117/41
[2021-04-22 20:13] LABS: GLUCOSE,POINT OF CARE 340 MG/DL (70-110)
[2021-04-22] MEDS ORDERED: INSULIN GLARGINE,HUM.REC.ANLOG 100 UNITS/ML SQ SCH (21:00)
[2021-04-23] VITALS: BP 109/43
[2021-04-23] MEDS: PROPOFOL 1000 MG/ISO-OSM 100 ML IV PRN ×3 (00:16→20:18)
[2021-04-23] MEDS: INSULIN REGULAR, HUMAN 100 UNITS/ML SQ PRN ×2 (00:43→05:36)
[2021-04-23 02:40] LABS: GLUCOSE,POINT OF CARE 275 MG/DL (70-110)
[2021-04-23 02:40] LABS: GLUCOSE,POINT OF CARE 366 MG/DL (70-110)
[2021-04-23 04:00] VITALS: BP 98/44
[2021-04-23 04:31] LABS: BASOPHILS % (AUTO) 0.3 % (0.0-2.0); EOSINOPHILS % (AUTO) 1.7 % (1.0-6.0); HEMATOCRIT 36.7 % (41-53); HEMOGLOBIN 12.3 g/dL (13.5-17.5); LYMPHOCYTES # (AUTO) 0.3 K/uL (1.0-4.8); LYMPHOCYTES % (AUTO) 4.1 % (22.0-44.0); MEAN CORPUSCULAR HEMOGLOBIN 30.8 pg (26.0-34.0); MEAN CORPUSCULAR HGB CONC 33.6 G/dL (31.0-37.0); MEAN CORPUSCULAR VOLUME 92 fL (80-100); MONOCYTES # (AUTO) 0.2 K/uL (0.1-1.0); MONOCYTES % (AUTO) 2.5 % (2.0-9.0); NEUTROPHILS # (AUTO) 7.3 K/uL (1.8-7.7); PLATELET COUNT (AUTO) 188 K/uL (150-450); RED BLOOD CELL COUNT(AUTO) 4.01 MIL/uL (4.50-5.90); RED CELL DISTRIBUTION WIDTH 13.8 % (11.5-14.5)
[2021-04-23 04:34] LABS: NEUTROPHILS % (AUTO) 91.4 % (40.0-70.0)
[2021-04-23 04:47] LABS: ALBUMIN 1.6 g/dL (3.4-5.0); BILIRUBIN,TOTAL 0.4 mg/dL (0.1-1.0); CALCIUM, TOTAL 7.9 mg/dL (8.8-10.5); CREATININE 1.36 mg/dL (0.60-1.30); POTASSIUM 4.4 mmol/L (3.5-5.1); TOTAL PROTEIN, SERUM 5.8 g/dL (6.4-8.2)
[2021-04-23] MEDS ORDERED: SODIUM CHLORIDE 0.9% 250 ML IV ONE (05:22)
[2021-04-23] MEDS: SODIUM CHLORIDE 0.9% 1,000 ML IV SCH ×2 (05:25→17:56)
[2021-04-23 06:58] LABS: GLUCOSE,POINT OF CARE 264 MG/DL (70-110)
[2021-04-23 08:00] VITALS: BP 176/69
[2021-04-23] MEDS: ETHYL ALCOHOL 62% ANTISEPTIC NASAL INHALANT 0.6 ML AMPUL NASAL SCH ×2 (09:05→21:18)
[2021-04-23] MEDS: DOCUSATE SODIUM 100 MG CAPSULE PO SCH ×2 (09:06→21:18)
[2021-04-23] MEDS: ENOXAPARIN SODIUM 30 MG/0.3 ML PF SYRINGE SQ SCH ×2 (09:06→21:18)
[2021-04-23] MEDS: DEXAMETHASONE SOD PHOS 4 MG/ML VIAL IVP SCH (09:09)
[2021-04-23] MEDS: FentaNYL CIT 1000MCG/0.9% NACL 100 ML IV PRN (09:12)
[2021-04-23] MEDS: PANTOPRAZOLE SODIUM 40 MG/VIAL IVP SCH (09:13)
[2021-04-23 12:00] VITALS: BP 109/43
[2021-04-23] MEDS ORDERED: INSULIN REGULAR, HUMAN 100 UNITS/ML SQ ONE ×2 (14:15→15:15)
[2021-04-23] MEDS ORDERED: INSULIN REGULAR, HUMAN 100 UNITS/ML SQ PRN (14:15)
[2021-04-23 14:34] LABS: GLUCOSE,POINT OF CARE 430 MG/DL (70-110)
[2021-04-23 15:53] LABS: GLUCOSE,POINT OF CARE 391 MG/DL (70-110)
[2021-04-23 16:00] VITALS: BP 121/43
[2021-04-23 17:11] LABS: GLUCOSE,POINT OF CARE 405 MG/DL (70-110)
[2021-04-23 18:28] LABS: GLUCOSE,POINT OF CARE 362 MG/DL (70-110)
[2021-04-23] MEDS ORDERED: DEXTROSE 5%-WATER 1,000 ML IV SCH (18:45)
[2021-04-23] MEDS ORDERED: INSULIN REGULAR, HUMAN 100 UNITS in SODIUM CHLORIDE 0.9% 99 ML IV PRN ×2 (18:45)
[2021-04-23] MEDS ORDERED: DEXTROSE 50%-WATER 25 GM/50 ML SYRINGE IVP PRN (18:45)
[2021-04-23 20:00] VITALS: BP 126/42
[2021-04-23] MEDS ORDERED: RAPID SEQUENCE KIT [RSI] 1 EACH KIT MISC ONE (20:26)
[2021-04-23] MEDS ORDERED: INSULIN GLARGINE,HUM.REC.ANLOG 100 UNITS/ML SQ SCH (21:00)
[2021-04-24] VITALS: BP 116/60
[2021-04-24 01:17] LABS: GLUCOSE,POINT OF CARE 259 MG/DL (70-110)
[2021-04-24 01:17] LABS: GLUCOSE,POINT OF CARE 191 MG/DL (70-110)
[2021-04-24 01:17] LABS: GLUCOSE,POINT OF CARE 206 MG/DL (70-110)
[2021-04-24 01:17] LABS: GLUCOSE,POINT OF CARE 228 MG/DL (70-110)
[2021-04-24 01:17] LABS: GLUCOSE,POINT OF CARE 238 MG/DL (70-110)
[2021-04-24] MEDS: FentaNYL CIT 1000MCG/0.9% NACL 100 ML IV PRN ×2 (01:42→02:30)
[2021-04-24] MEDS: PROPOFOL 1000 MG/ISO-OSM 100 ML IV PRN ×3 (03:11→16:53)
[2021-04-24 04:00] VITALS: BP 123/40
[2021-04-24 05:26] LABS: ANION GAP 3 mmol/L (8-16); CALCIUM, TOTAL 8.1 mg/dL (8.8-10.5); CARBON DIOXIDE 29 mmol/L (22-29); CHLORIDE 118 mmol/L (98-107); CREATININE 1.09 mg/dL (0.60-1.30); GLUCOSE,RANDOM 192 mg/dL (70-110); POTASSIUM 4.1 mmol/L (3.5-5.1); SODIUM SERUM 150 mmol/L (136-145); UREA NITROGEN, BLOOD 67 mg/dL (7-18)
[2021-04-24 05:35] LABS: GLOMERULAR FILTR. RATE CALC > 60 mL/min (>60)
[2021-04-24 06:35] LABS: GLUCOSE,POINT OF CARE 235 MG/DL (70-110)
[2021-04-24 06:35] LABS: GLUCOSE,POINT OF CARE 177 MG/DL (70-110)
[2021-04-24 06:35] LABS: GLUCOSE,POINT OF CARE 223 MG/DL (70-110)
[2021-04-24 06:35] LABS: GLUCOSE,POINT OF CARE 178 MG/DL (70-110)
[2021-04-24 07:58] LABS: BASOPHILS % (AUTO) 0.3 % (0.0-2.0); EOSINOPHILS % (AUTO) 5.3 % (1.0-6.0); HEMATOCRIT 37.1 % (41-53); HEMOGLOBIN 12.2 g/dL (13.5-17.5); LYMPHOCYTES # (AUTO) 0.4 K/uL (1.0-4.8); LYMPHOCYTES % (AUTO) 5.8 % (22.0-44.0); MEAN CORPUSCULAR HEMOGLOBIN 30.3 pg (26.0-34.0); MEAN CORPUSCULAR HGB CONC 32.9 G/dL (31.0-37.0); MEAN CORPUSCULAR VOLUME 92 fL (80-100); MONOCYTES # (AUTO) 0.2 K/uL (0.1-1.0); MONOCYTES % (AUTO) 2.4 % (2.0-9.0); NEUTROPHILS # (AUTO) 6.7 K/uL (1.8-7.7); PLATELET COUNT (AUTO) 168 K/uL (150-450); RED BLOOD CELL COUNT(AUTO) 4.03 MIL/uL (4.50-5.90)
[2021-04-24 08:00] VITALS: BP 110/40
[2021-04-24 08:06] LABS: NEUTROPHILS % (AUTO) 86.2 % (40.0-70.0)
[2021-04-24] MEDS: PANTOPRAZOLE SODIUM 40 MG/VIAL IVP SCH (08:52)
[2021-04-24] MEDS: SODIUM CHLORIDE 0.9% 1,000 ML IV SCH ×2 (08:52→20:50)
[2021-04-24] MEDS: ENOXAPARIN SODIUM 30 MG/0.3 ML PF SYRINGE SQ SCH ×2 (08:53→20:50)
[2021-04-24] MEDS: ETHYL ALCOHOL 62% ANTISEPTIC NASAL INHALANT 0.6 ML AMPUL NASAL SCH ×2 (08:53→20:51)
[2021-04-24] MEDS: DEXAMETHASONE SOD PHOS 4 MG/ML VIAL IVP SCH (08:53)
[2021-04-24] MEDS: DOCUSATE SODIUM 100 MG CAPSULE PO SCH ×2 (08:53→20:50)
[2021-04-24 12:00] VITALS: BP 152/56
[2021-04-24 13:06] LABS: GLUCOSE,POINT OF CARE 160 MG/DL (70-110)
[2021-04-24 13:06] LABS: GLUCOSE,POINT OF CARE 115 MG/DL (70-110)
[2021-04-24 14:21] LABS: GLUCOSE,POINT OF CARE 336 MG/DL (70-110)
[2021-04-24 14:21] LABS: GLUCOSE,POINT OF CARE 337 MG/DL (70-110)
[2021-04-24 15:08] LABS: GLUCOSE,POINT OF CARE 325 MG/DL (70-110)
[2021-04-24 15:52] LABS: GLUCOSE,POINT OF CARE 327 MG/DL (70-110)
[2021-04-24 15:55] LABS: ABG A-A DIFF O2 312.3 mmHg (10-20.0); ABG BASE EXCESS -4.8 mmol/L (-2.0-3.0); ABG CARBOXYHEMOGLOBIN 0.4 % (0.0-1.5); ABG HCO3 20.7 mmol/L (22.0-26.0); ABG METHEMOGLOBIN 0.3 % (0.0-1.5); ABG OXYGEN CONTENT 16.8 mL/dL (15.0-23.0); ABG OXYGEN SATURATION 93.8 % (95.0-98.0); ABG OXYHEMOGLOBIN 93.1 % (94.0-100.0); ABG PCO2 41 mmHg (35-45); ABG PH 7.333 (7.35-7.450); ABG TOTAL HEMOGLOBIN 12.8 G/dL (12.0-18.0); O2 DEVICE,BLOOD GAS VENTILATOR (ROOM AIR); PEEP,BG 8 cm H2O; PO2, ARTERIAL BG 70.7 mmHg (75.0-83.0); SITE, BLOOD GAS ARTERIAL LINE; SOURCE, BLOOD GAS ARTERIAL; TEMPERATURE, FAHRENHEIT, BG 98.6 FAHREN (96.0-98.6); VENT MODE, BG Press. Control Vent (ROOM AIR)
[2021-04-24 15:56] LABS: INSPIRATORY TIME, BG 0.8 SEC
[2021-04-24 16:00] VITALS: BP 127/47
[2021-04-24 16:13] LABS: GLUCOSE,POINT OF CARE 255 MG/DL (70-110)
[2021-04-24] MEDS ORDERED: DEXTROSE 50%-WATER 25 GM/50 ML SYRINGE IVP PRN (17:00)
[2021-04-24 17:10] LABS: GLUCOSE,POINT OF CARE 219 MG/DL (70-110)
[2021-04-24 18:09] LABS: GLUCOSE,POINT OF CARE 156 MG/DL (70-110)
[2021-04-24 20:00] VITALS: BP 102/38
[2021-04-24] MEDS: INSULIN GLARGINE,HUM.REC.ANLOG 100 UNITS/ML SQ SCH (20:54)
[2021-04-24 22:02] LABS: GLUCOSE,POINT OF CARE 168 MG/DL (70-110)
[2021-04-24 22:02] LABS: GLUCOSE,POINT OF CARE 172 MG/DL (70-110)
[2021-04-25] VITALS: BP 114/43
[2021-04-25] MEDS: INSULIN REGULAR, HUMAN 100 UNITS/ML SQ PRN ×5 (00:03→23:41)
[2021-04-25 00:16] LABS: GLUCOSE,POINT OF CARE 244 MG/DL (70-110)
[2021-04-25] MEDS: PROPOFOL 1000 MG/ISO-OSM 100 ML IV PRN ×3 (02:14→20:45)
[2021-04-25 04:00] VITALS: BP 105/42
[2021-04-25 05:55] LABS: BASOPHILS % (AUTO) 0.1 % (0.0-2.0); EOSINOPHILS % (AUTO) 4.8 % (1.0-6.0); HEMATOCRIT 34.2 % (41-53); HEMOGLOBIN 11.3 g/dL (13.5-17.5); LYMPHOCYTES # (AUTO) 0.5 K/uL (1.0-4.8); LYMPHOCYTES % (AUTO) 6.8 % (22.0-44.0); MEAN CORPUSCULAR HEMOGLOBIN 30.6 pg (26.0-34.0); MEAN CORPUSCULAR HGB CONC 33.1 G/dL (31.0-37.0); MEAN CORPUSCULAR VOLUME 93 fL (80-100); MONOCYTES # (AUTO) 0.2 K/uL (0.1-1.0); MONOCYTES % (AUTO) 2.5 % (2.0-9.0); NEUTROPHILS # (AUTO) 6.6 K/uL (1.8-7.7); PLATELET COUNT (AUTO) 148 K/uL (150-450)
[2021-04-25 06:16] LABS: ANION GAP 2 mmol/L (8-16); CARBON DIOXIDE 26 mmol/L (22-29); CHLORIDE 119 mmol/L (98-107); CREATININE 0.87 mg/dL (0.60-1.30); GLUCOSE,RANDOM 234 mg/dL (70-110); SODIUM SERUM 147 mmol/L (136-145); UREA NITROGEN, BLOOD 63 mg/dL (7-18)
[2021-04-25 06:46] LABS: GLOMERULAR FILTR. RATE CALC > 60 mL/min (>60)
[2021-04-25 06:58] LABS: NEUTROPHILS % (AUTO) 85.8 % (40.0-70.0)
[2021-04-25 07:04] LABS: GLUCOSE,POINT OF CARE 215 MG/DL (70-110)
[2021-04-25 07:43] LABS: ABG A-A DIFF O2 400.5 mmHg (10-20.0); ABG BASE EXCESS 0.3 mmol/L (-2.0-3.0); ABG CARBOXYHEMOGLOBIN 0.5 % (0.0-1.5); ABG HCO3 24.5 mmol/L (22.0-26.0); ABG METHEMOGLOBIN 0.3 % (0.0-1.5); ABG OXYGEN CONTENT 15.8 mL/dL (15.0-23.0); ABG OXYGEN SATURATION 89.3 % (95.0-98.0); ABG OXYHEMOGLOBIN 88.6 % (94.0-100.0); ABG PCO2 41 mmHg (35-45); ABG TOTAL HEMOGLOBIN 12.7 G/dL (12.0-18.0); PO2, ARTERIAL BG 54.1 mmHg (75.0-83.0); SOURCE, BLOOD GAS ARTERIAL; TEMPERATURE, FAHRENHEIT, BG 98.6 FAHREN (96.0-98.6)
[2021-04-25 07:50] LABS: INSPIRATORY TIME, BG 0.8 SEC; O2 DEVICE,BLOOD GAS VENTILATOR (ROOM AIR); PEEP,BG 5 cm H2O; SITE, BLOOD GAS ARTERIAL LINE; VENT MODE, BG Press. Control Vent (ROOM AIR)
[2021-04-25 08:00] VITALS: BP 128/43
[2021-04-25] MEDS: ENOXAPARIN SODIUM 30 MG/0.3 ML PF SYRINGE SQ SCH ×2 (08:42→20:41)
[2021-04-25] MEDS: DEXAMETHASONE SOD PHOS 4 MG/ML VIAL IVP SCH (08:42)
[2021-04-25] MEDS: PANTOPRAZOLE SODIUM 40 MG/VIAL IVP SCH (08:43)
[2021-04-25] MEDS: DOCUSATE SODIUM 100 MG CAPSULE PO SCH ×2 (08:43→20:41)
[2021-04-25] MEDS: ETHYL ALCOHOL 62% ANTISEPTIC NASAL INHALANT 0.6 ML AMPUL NASAL SCH ×2 (08:43→20:41)
[2021-04-25] MEDS: SODIUM CHLORIDE 0.9% 1,000 ML IV SCH ×2 (08:43→20:46)
[2021-04-25] MEDS ORDERED: CISATRACURIUM BESYLATE 2 MG/ML 10 ML VIAL IVP ONE (08:45)
[2021-04-25 09:44] LABS: ALBUMIN 1.6 g/dL (3.4-5.0); BILIRUBIN,DIRECT 0.1 mg/dL (0.00-0.20); BILIRUBIN,TOTAL 0.4 mg/dL (0.1-1.0); TOTAL PROTEIN, SERUM 5.3 g/dL (6.4-8.2)
[2021-04-25] MEDS: CISATRACURIUM BESYLATE 100 MG in DEXTROSE 5%-WATER 240 ML IV PRN ×2 (11:12→18:19)
[2021-04-25 12:00] VITALS: BP 90/38
[2021-04-25] MEDS ORDERED: LEVOTHYROXINE SODIUM 100 MCG VIAL IVP ONE (12:30)
[2021-04-25] MEDS: FentaNYL CIT 1000MCG/0.9% NACL 100 ML IV PRN (14:57)
[2021-04-25 16:00] VITALS: BP 144/50
[2021-04-25 17:36] LABS: GLUCOSE,POINT OF CARE 245 MG/DL (70-110)
[2021-04-25 20:00] VITALS: BP 92/42
[2021-04-25] MEDS: INSULIN GLARGINE,HUM.REC.ANLOG 100 UNITS/ML SQ SCH (21:23)
[2021-04-25 21:51] LABS: GLUCOSE,POINT OF CARE 269 MG/DL (70-110)
[2021-04-25 21:51] LABS: GLUCOSE,POINT OF CARE 228 MG/DL (70-110)
[2021-04-26] VITALS: BP 151/54
[2021-04-26 00:22] LABS: GLUCOSE,POINT OF CARE 208 MG/DL (70-110)
[2021-04-26] MEDS: CISATRACURIUM BESYLATE 100 MG in DEXTROSE 5%-WATER 240 ML IV PRN (03:35)
[2021-04-26 04:00] VITALS: BP 109/46
[2021-04-26] MEDS: INSULIN REGULAR, HUMAN 100 UNITS/ML SQ PRN ×3 (05:40→17:57)
[2021-04-26 05:42] LABS: BASOPHILS % (AUTO) 0.1 % (0.0-2.0); EOSINOPHILS % (AUTO) 0.8 % (1.0-6.0); HEMATOCRIT 35.5 % (41-53); HEMOGLOBIN 11.6 g/dL (13.5-17.5); LYMPHOCYTES # (AUTO) 0.3 K/uL (1.0-4.8); LYMPHOCYTES % (AUTO) 3.2 % (22.0-44.0); MEAN CORPUSCULAR HEMOGLOBIN 30.6 pg (26.0-34.0); MEAN CORPUSCULAR HGB CONC 32.6 G/dL (31.0-37.0); MEAN CORPUSCULAR VOLUME 94 fL (80-100); MONOCYTES # (AUTO) 0.3 K/uL (0.1-1.0); MONOCYTES % (AUTO) 3.2 % (2.0-9.0); NEUTROPHILS # (AUTO) 10.2 K/uL (1.8-7.7); PLATELET COUNT (AUTO) 160 K/uL (150-450); RED BLOOD CELL COUNT(AUTO) 3.78 MIL/uL (4.50-5.90); RED CELL DISTRIBUTION WIDTH 14.2 % (11.5-14.5)
[2021-04-26 05:47] LABS: NEUTROPHILS % (AUTO) 92.7 % (40.0-70.0)
[2021-04-26 05:53] LABS: ALANINE AMINOTRANSFERASE 25 U/L (12-78); ALBUMIN 1.5 g/dL (3.4-5.0); ALKALINE PHOSPHATASE 84 U/L (46-116); ANION GAP -1 mmol/L (8-16); ASPARTATE AMINOTRANSFERASE 20 U/L (15-37); BILIRUBIN,TOTAL 0.3 mg/dL (0.1-1.0); CALCIUM, TOTAL 7.7 mg/dL (8.8-10.5); CARBON DIOXIDE 29 mmol/L (22-29); CHLORIDE 118 mmol/L (98-107); CREATININE 0.78 mg/dL (0.60-1.30); GLUCOSE,RANDOM 153 mg/dL (70-110); POTASSIUM 4.8 mmol/L (3.5-5.1); SODIUM SERUM 146 mmol/L (136-145); TOTAL PROTEIN, SERUM 5.1 g/dL (6.4-8.2); UREA NITROGEN, BLOOD 53 mg/dL (7-18)
[2021-04-26 05:55] LABS: GLOMERULAR FILTR. RATE CALC > 60 mL/min (>60)
[2021-04-26 06:40] LABS: GLUCOSE,POINT OF CARE 129 MG/DL (70-110)
[2021-04-26] MEDS: FentaNYL CIT 1000MCG/0.9% NACL 100 ML IV PRN (06:49)
[2021-04-26] MEDS: PROPOFOL 1000 MG/ISO-OSM 100 ML IV PRN ×2 (06:50→19:45)
[2021-04-26 08:00] VITALS: BP 118/45
[2021-04-26] MEDS: DEXAMETHASONE SOD PHOS 4 MG/ML VIAL IVP SCH (08:55)
[2021-04-26] MEDS: ENOXAPARIN SODIUM 30 MG/0.3 ML PF SYRINGE SQ SCH (08:55)
[2021-04-26] MEDS: DOCUSATE SODIUM 100 MG CAPSULE PO SCH (08:56)
[2021-04-26] MEDS: ETHYL ALCOHOL 62% ANTISEPTIC NASAL INHALANT 0.6 ML AMPUL NASAL SCH (08:56)
[2021-04-26] MEDS: PANTOPRAZOLE SODIUM 40 MG/VIAL IVP SCH (08:56)
[2021-04-26] MEDS ORDERED: LEVOTHYROXINE SODIUM 100 MCG VIAL IVP SCH (09:00)
[2021-04-26 12:00] VITALS: BP 104/41
[2021-04-26] MEDS: SODIUM CHLORIDE 0.9% 1,000 ML IV SCH (12:22)
[2021-04-26 14:29] LABS: ABG A-A DIFF O2 242.4 mmHg (10-20.0); ABG BASE EXCESS 2.6 mmol/L (-2.0-3.0); ABG CARBOXYHEMOGLOBIN 0.3 % (0.0-1.5); ABG METHEMOGLOBIN 0.3 % (0.0-1.5); ABG OXYGEN CONTENT 15.6 mL/dL (15.0-23.0); ABG OXYGEN SATURATION 97.5 % (95.0-98.0); ABG OXYHEMOGLOBIN 96.9 % (94.0-100.0); ABG PCO2 32 mmHg (35-45); ABG PH 7.519 (7.35-7.450); ABG TOTAL HEMOGLOBIN 11.4 G/dL (12.0-18.0); PO2, ARTERIAL BG 79.2 mmHg (75.0-83.0); SOURCE, BLOOD GAS ARTERIAL; TEMPERATURE, FAHRENHEIT, BG 97.1 FAHREN (96.0-98.6)
[2021-04-26 14:30] LABS: O2 DEVICE,BLOOD GAS VENTILATOR (ROOM AIR); PEEP,BG 5 cm H2O; SITE, BLOOD GAS ARTERIAL LINE; SPONTANEOUS VT, BG 435 ml; VENT MODE, BG Press. Control Vent (ROOM AIR)
[2021-04-26 14:31] LABS: INSPIRATORY TIME, BG 0.8 SEC
[2021-04-26 16:00] VITALS: BP 107/40
[2021-04-26 16:18] LABS: ABG A-A DIFF O2 236.1 mmHg (10-20.0); ABG BASE EXCESS 0.6 mmol/L (-2.0-3.0); ABG CARBOXYHEMOGLOBIN 0.3 % (0.0-1.5); ABG HCO3 25.4 mmol/L (22.0-26.0); ABG METHEMOGLOBIN 0.3 % (0.0-1.5); ABG OXYHEMOGLOBIN 93.4 % (94.0-100.0); ABG PCO2 29 mmHg (35-45); ABG PH 7.521 (7.35-7.450); ABG TOTAL HEMOGLOBIN 11.4 G/dL (12.0-18.0); PO2, ARTERIAL BG 53.3 mmHg (75.0-83.0); SOURCE, BLOOD GAS ARTERIAL; TEMPERATURE, FAHRENHEIT, BG 95.5 FAHREN (96.0-98.6)
[2021-04-26 16:19] LABS: SITE, BLOOD GAS ARTERIAL LINE
[2021-04-26 16:20] LABS: O2 DEVICE,BLOOD GAS VENTILATOR (ROOM AIR); PEEP,BG 5 cm H2O; VENT MODE, BG Press. Control Vent (ROOM AIR)
[2021-04-26 16:21] LABS: INSPIRATORY TIME, BG 0.8 SEC; SPONTANEOUS VT, BG 499 ml
[2021-04-26 17:29] LABS: ABG A-A DIFF O2 257.7 mmHg (10-20.0); ABG BASE EXCESS 0.2 mmol/L (-2.0-3.0); ABG CARBOXYHEMOGLOBIN 0.3 % (0.0-1.5); ABG HCO3 24.8 mmol/L (22.0-26.0); ABG METHEMOGLOBIN 0.3 % (0.0-1.5); ABG OXYGEN CONTENT 14.5 mL/dL (15.0-23.0); ABG OXYGEN SATURATION 94.7 % (95.0-98.0); ABG OXYHEMOGLOBIN 94.1 % (94.0-100.0); ABG PCO2 35 mmHg (35-45); ABG PH 7.455 (7.35-7.450); ABG TOTAL HEMOGLOBIN 10.9 G/dL (12.0-18.0); SOURCE, BLOOD GAS ARTERIAL; TEMPERATURE, FAHRENHEIT, BG 96.3 FAHREN (96.0-98.6)
[2021-04-26 17:30] LABS: O2 DEVICE,BLOOD GAS VENTILATOR (ROOM AIR); PEEP,BG 5 cm H2O; SITE, BLOOD GAS ARTERIAL LINE; VT, ABG 420 ml
[2021-04-26 17:31] LABS: SPONTANEOUS VT, BG 407 ml
[2021-04-26 17:43] LABS: GLUCOSE,POINT OF CARE 149 MG/DL (70-110)
[2021-04-26 19:45] VITALS: BP 172/55
[2021-04-27 03:08] LABS: GLUCOSE,POINT OF CARE 175 MG/DL (70-110)
== END 2021-04-26 20:20 | DRG 870 ==
LOC: EMS 19:43 → 6S 04-09 06:02 → 5N 04-10 00:16 → ICU 04-19 08:50
PROVIDERS: ADMIT Internal Medicine; ATTEND Internal Medicine
PROC: 5A09457 Assistance with Respiratory Ventilation, 24-96 Consecutive Hours, Continuous Positive Airway Pressure (ICD-10-PCS; 2021-04-12)
PROC: 5A09357 Assistance with Respiratory Ventilation, Less than 24 Consecutive Hours, Continuous Positive Airway Pressure (ICD-10-PCS; 2021-04-18)
PROC: 5A1955Z Respiratory Ventilation, Greater than 96 Consecutive Hours (ICD-10-PCS; principal; 2021-04-19)
PROC: 0BH17EZ Insertion of Endotracheal Airway into Trachea, Via Natural or Artificial Opening (ICD-10-PCS; 2021-04-19)
PROC: 5A09357 Assistance with Respiratory Ventilation, Less than 24 Consecutive Hours, Continuous Positive Airway Pressure (ICD-10-PCS; 2021-04-19)
DX: A41.89 Other specified sepsis (principal); U07.1 COVID-19; J12.82 Pneumonia due to coronavirus disease 2019; J80 Acute respiratory distress syndrome; E87.1 Hypo-osmolality and hyponatremia; E03.9 Hypothyroidism, unspecified; E78.5 Hyperlipidemia, unspecified; I10 Essential (primary) hypertension; D72.810 Lymphocytopenia; E11.65 Type 2 diabetes mellitus with hyperglycemia; N40.0 Benign prostatic hyperplasia without lower urinary tract symptoms; Z59.0 Homelessness
CPT/HCPCS: 31500; 36600; 71045; 80048; 80053; 80076; 81001; 81002; 82805; 82962; 83605; 83880; 84132; 84145; 84439; 84443; 84484; 85025; 85379; 85610; 85730; 86140; 87040; 87070; 87205; 87804; 93005; 93970; 94002; 94003; 94660; 96365; 96367; 97162; 97530; 99285; C9113; G0238; G0378; G0480; J0456; J0696; J1100; J1644; J1650; J1815; J2060; J2250; J2270; J2370; J2704; J3010; J3480; J3490; J7030; J7040; J7050; J7060; Q9967; 36415-L1; 36415-TC; U0003